=== PATIENT | male | born 1960 | race African-American/Black ===

== ENCOUNTER 2016-02-27 12:05 | Emergency (ER) | payer OTHER ==
[~2016-02-27] VITALS: Wt 59.0 kg
[~2016-02-27 12:05] MED LIST: ALBU8.5H3 INH; CARI350T PO; CYCL-319 PO; GUAI-47 PO; GUAI120S26 PO; LEVO500T72 PO; PRED50TA PO; TAMS-14 PO
[2016-02-27] MEDS ORDERED: ALBUTEROL/IPRATROPIUM (NEB) 3 ML AMP HHN STA (13:12)
--- NOTE | 2016-02-27 13:12 | ERD ---
ER Documentation Chief Complaint Date/Time DATE: 02/27/16 TIME: 13:10 Chief Complaint cough and wheezing for 1 week getting worse. no recent fevers. HPI This patient is a 56-year-old male presenting to the emergency department for asthma exacerbation which has been going on for approximately 1 week. He states he went to [place] and something triggered his asthma and he he has had intermittent wheezing since then. Additionally he reports a nonproductive cough. He also reports some arm tingling but denies any chest pain, shortness of breath, urinary symptoms, fevers, chills or other symptoms at this time. ROS All systems reviewed and are negative except as per history of present illness. Medications Home Meds Active Scripts Albuterol Sulfate* (Ventolin HFA*) 18 Gm Hfa.aer.ad, 2 PUFF INHALATION Q4H, #1 INHALER Prov:LEON LAIRD PA-C 02/27/16 Prednisone* (Prednisone*) 20 Mg Tab, 40 MG PO DAILY for 5 Days, #10 TAB Prov:LEON LAIRD PA-C 02/27/16 Qdsmctrgwfs-M-Uueaahtvei Hb* (Guaifenesin* DM Syrup) 120 Ml Syrup, 10 ML PO Q4H Y for COUGH, #120 ML Prov:GILBERT BESS NP 10/15/15 Prednisone* (Prednisone*) 50 Mg Tablet, 50 MG PO DAILY, #5 TAB Prov:GILBERT BESS NP 10/15/15 Albuterol Sulfate* (Proair HFA*) 8.5 Gm Hfa.aer.ad, 2 PUFF INH Q4H Y for WHEEZING AND SOB, #1 INHALER Prov:GILBERT BESS NP 10/15/15 Tamsulosin Hcl* (Flomax*) 0.4 Mg Cap.er.24h, 0.4 MG PO DAILY, #20 CAP Prov:GILBERT BESS NP 10/15/15 Carisoprodol* (Soma*) 350 Mg Tablet, 350 MG PO TID Y for MUSCLE SPASMS, #15 TAB Prov:ALAYNA ZAPATA NP 05/30/15 Cyclobenzaprine Hcl* (Cyclobenzaprine Hcl*) 10 Mg Tablet, 10 MG PO TID, #15 TAB Prov:ALAYNA ZAPATA I. AQUATICS LIFEGUARD 05/30/15 Guaifenesin-Dextromethorphan* (Mucinex* DM) 600-30 Mg Tabsr, 1 TAB PO Q12, #20 TAB Prov:RADHA GOODWIN DO 11/27/14 Albuterol Sulfate* (Proair HFA*) 8.5 Gm Hfa.aer.ad, 2 PUFF INH Q4, #1 INH 1 Refill Prov:RADHA GOODWIN DO 11/27/14 Levofloxacin* (Levaquin*) 500 Mg Tablet, 500 MG PO DAILY for 7 Days, TAB Prov:RADHA GOODWIN DO 11/27/14 Allergies Allergies: Coded Allergies: No Known Allergy (Unverified , 05/30/15) PMhx/Soc History of Surgery: No Anesthesia Reaction: No Hx Neurological Disorder: No Hx Respiratory Disorders: Yes (ASTHMA ) Hx Cardiac Disorders: No Hx Psychiatric Problems: No Hx Miscellaneous Medical Probl: Yes (PROSTATE PROBLEMS ) Hx Alcohol Use: No Hx Substance Use: No Hx Tobacco Use: Yes (1/2 PACK /DAY ) Smoking Status: Current every day smoker FmHx Noncontributory for chief complaint Physical Exam Vitals Vital Signs Date Time Temp Pulse Resp B/P Pulse Ox O2 Delivery O2 Flow Rate FiO2 02/27/16 13:22 89 22 98 21 02/27/16 12:08 97.6 93 20 134/74 96 Physical Exam INITIAL VITAL SIGNS: Reviewed by me. GENERAL: Alert and interactive. No acute distress. HEAD: Head is normocephalic and atraumatic. EYES: EOMI. No scleral icterus. No conjunctival injection. ENT: Moist mucosa. NECK: Supple. Full range of motion. RESPIRATORY: Shallow inspiratory effort. Inspiratory wheezing to bilateral upper lung shaffer. There are no crackles auscultated. CV: Regular rate and rhythm. Normal S1 S2. No S3 or S4. No murmurs. ABDOMEN: Soft, non-distended, non-tender. No guarding. No rebound. No masses. EXTREMITIES: No deformity. SKIN: Warm and dry. NEUROLOGIC: Alert and oriented x 4. Speech is normal. Moves all extremities equally. No motor or sensory deficits noted. Results 24 hrs Current Medications Medications (Trade) Dose Ordered Sig/Jagjit Route PRN Reason Start Time Stop Time Status Last Admin Dose Admin Albuterol/ Ipratropium (Duoneb) 3 ml ONCE STAT HHN 02/27/16 13:12 02/27/16 13:14 DC 02/27/16 13:28 Dexamethasone (Decadron) 10 mg ONCE ONCE IM 02/27/16 13:30 02/27/16 13:31 DC 02/27/16 13:21 Procedures/MDM 36-year-old male with a history of asthma presenting to the emergency department for 1 week of asthma exacerbation with wheezing and cough. I have ordered a chest x-ray looking for any signs of pneumonia, bronchitis or hyperinflation of the lungs. I have ordered a medication albuterol/ipratropium breathing treatment. I have ordered an IM 10 mg Decadron injection. On reevaluation the patient was feeling improved and his pulse oximetry increased. One view chest x-ray interpretation by radiologist: PROCEDURE: XR Chest. CLINICAL INDICATION: We seen/cough TECHNIQUE: Chest AP portable. COMPARISON: 10/15/2015 FINDINGS: The mediastinal structures are unremarkable. The heart is normal in size and configuration. The pulmonary vascularity is normal. The lung shaffer are unremarkable. No consolidation is identified. The pleural spaces are unremarkable. The axial skeleton is unremarkable. IMPRESSION: No active intrathoracic disease EKG: Interpreted by ED physician Rate/Rhythm: Normal sinus rhythm with a rate of [address] bpm[address] QRS, ST, T-waves: No changes consistent w/ acute ischemia Impression: No evidence of ischemia or arrhythmia Primary diagnosis: Asthma exacerbation Secondary diagnosis: Reactive airway disease with wheezing Discharge: I have discussed the lab results and diagnostic findings with the patient and answered any questions or concerns. The patient was discharged with a prescription for prednisone and albuterol inhaler. The patient was advised to followup with their PMD in 1-2 days and to return to the ED if there are any new or worsening symptoms. The patient understood and agreed with treatment and plan. Departure Diagnosis: Primary Impression: Asthma Additional Impression: RAD (reactive airway disease) with wheezing Condition: Stable Additional Instructions: Follow-up with your primary care physician within 1 week. Return to the emergency department immediately should you have any new or worsening symptoms, uncontrolled fevers, or other unexplained symptoms. Take all medications as directed. LEON LAIRD PA-C Feb 27, 2016 13:12 Take all medications as directed. LEON LAIRD PA-C Feb 27, 2016 13:12
[2016-02-27] MEDS ORDERED: DEXAMETHASONE 10 MG/ML 1 ML INJ IM ONE (13:30)
--- NOTE | 2016-02-27 14:00 | RADRPT ---
PROCEDURE: XR Chest. CLINICAL INDICATION: We seen/cough TECHNIQUE: Chest AP portable. COMPARISON: 10/15/2015 FINDINGS: The mediastinal structures are unremarkable. The heart is normal in size and configuration. The pu lmonary vascularity is normal. The lung shaffer are unremarkable. No consolidation is identified. The pleural spaces are unremarkable. The axial skeleton is unremarkable. IMPRESSION: No active intrathoracic disease. RPTAT: HGDB .Sigifredo Dorsey MD, MD Date Time Electronically viewed and signed by .Sigifredo Dorsey MD, on 02/27/2016 14:00 .B/
[2016-02-27] MEDS ORDERED: PRED20TA PO (14:13)
[2016-02-27] MEDS ORDERED: ALBU18HF INHALATION (14:13)
== END 2016-02-27 14:29 | disposition home or self-care (01) ==
LOC: FTE 12:05
DX: J45.901 Unspecified asthma with (acute) exacerbation (principal); F17.210 Nicotine dependence, cigarettes, uncomplicated
CPT/HCPCS: 71010; 94664; 96372; J1100; Z7502; Z7610; 93005

== ENCOUNTER 2016-03-12 19:25 | Emergency (ER) | payer OTHER ==
[~2016-03-12] VITALS: Ht 175.3 cm; Wt 61.0 kg
[~2016-03-12 19:25] MED LIST changes: +ALBU18HF INHALATION; +PRED20TA PO
[2016-03-12 20:30] VITALS: Ht 175.3 cm; Wt 61.0 kg
--- NOTE | 2016-03-12 21:38 | ERA ---
ER Documentation Chief Complaint Date/Time DATE: 03/12/16 TIME: 21:37 Chief Complaint sob, x 2 days, cough, hx-asthma HPI The patient is a 56-year-old male, presenting to the ER because of shortness of breath, cough, nasal congestion for 2 days. He denies fever, chills, facial pain, neck pain, chest pain, dyspnea, abdominal pain, vomiting, diarrhea. He lost his medication albuterol for the last 2 days. He does smoke half a pack a day, denies drinking Past medical history: Asthma, BPH Past surgical history: None ROS All systems reviewed and are negative except as per history of present illness. Medications Home Meds Active Scripts Salmeterol Xinaf-Fluticasone* (Advair HFA*) 45 Aerosol Inhaler, 2 INH IH BID , #1 INHALER Prov:RAMA SNEED MD 03/13/16 Albuterol Sulfate* (Ventolin HFA*) 18 Gm Hfa.aer.ad, 2 PUFF INHALATION Q4H, #1 INHALER Prov:RAMA SNEED MD 03/13/16 Prednisone* (Prednisone*) 20 Mg Tab, 60 MG PO DAILY for 5 Days, TAB Prov:RAMA SNEED MD 03/13/16 Azithromycin* (Zithromax*) 250 Mg Tablet, 250 MG PO .MIGUEL DIRECTED, #6 TAB TAKE 500 MG (2 TABS) THE FIRST DAY THEN 250 MG (1 TAB) DAYS 2-5 Prov:RAMA SNEED MD 03/13/16 Albuterol Sulfate* (Ventolin HFA*) 18 Gm Hfa.aer.ad, 2 PUFF INHALATION Q4H, #1 INHALER Prov:LEON LAIRD PA-C 02/27/16 Prednisone* (Prednisone*) 20 Mg Tab, 40 MG PO DAILY for 5 Days, #10 TAB Prov:LEON LAIRD PA-C 02/27/16 Mapbzlqdwai-B-Kslfuqznxl Hb* (Guaifenesin* DM Syrup) 120 Ml Syrup, 10 ML PO Q4H Y for COUGH, #120 ML Prov:GILBERT BESS NP 10/15/15 Prednisone* (Prednisone*) 50 Mg Tablet, 50 MG PO DAILY, #5 TAB Prov:GILBERT BESS NP 10/15/15 Albuterol Sulfate* (Proair HFA*) 8.5 Gm Hfa.aer.ad, 2 PUFF INH Q4H Y for WHEEZING AND SOB, #1 INHALER Prov:GILBERT BESS LOOM MECHANIC 10/15/15 Tamsulosin Hcl* (Flomax*) 0.4 Mg Cap.er.24h, 0.4 MG PO DAILY, #20 CAP Prov:GILBERT BESS LOOM MECHANIC 10/15/15 Carisoprodol* (Soma*) 350 Mg Tablet, 350 MG PO TID Y for MUSCLE SPASMS, #15 TAB Prov:ZAPATAALAYNA SHEPPARD I. LOOM MECHANIC 05/30/15 Cyclobenzaprine Hcl* (Cyclobenzaprine Hcl*) 10 Mg Tablet, 10 MG PO TID, #15 TAB Prov:ALAYNA ZAPATA I. LOOM MECHANIC 05/30/15 Guaifenesin-Dextromethorphan* (Mucinex* DM) 600-30 Mg Tabsr, 1 TAB PO Q12, #20 TAB Prov:CHRISTA,RADHA 11/27/14 Albuterol Sulfate* (Proair HFA*) 8.5 Gm Hfa.aer.ad, 2 PUFF INH Q4, #1 INH 1 [facility] 11/27/14 Levofloxacin* (Levaquin*) 500 Mg Tablet, 500 MG PO DAILY for 7 Days, TAB Prov:[facility] 11/27/14 Allergies Allergies: Coded Allergies: No Known Allergy (Unverified , 05/30/15) PMhx/Soc History of Surgery: No Anesthesia Reaction: No Hx Neurological Disorder: No Hx Respiratory Disorders: Yes (ASTHMA ) Hx Cardiac Disorders: No Hx Psychiatric Problems: No Hx Miscellaneous Medical Probl: Yes (PROSTATE PROBLEMS ) Hx Alcohol Use: No Hx Substance Use: No Hx Tobacco Use: Yes (1/2 PACK /DAY ) Physical Exam Vitals Vital Signs Date Time Temp Pulse Resp B/P Pulse Ox O2 Delivery O2 Flow Rate FiO2 03/12/16 22:05 89 24 98 21 03/12/16 20:30 997.9 94 20 156/84 99 Physical Exam Const: No acute distress. Head: Atraumatic. Eyes: Normal Conjunctiva. ENT: Normal External Ears, Nose and Mouth. Neck: Full range of motion. No meningismus. Resp: Bilateral expiratory wheezes Cardio: Regular rate and rhythm, no murmurs. Abd: Soft, non distended, normal bowel sounds, non tender. Skin: No petechiae or rashes. Back: No midline or flank tenderness. Ext: No cyanosis, or edema. Neur: Awake and alert. No focal deficit Psych: Normal Mood and Affect. Results 24 hrs Current Medications Medications (Trade) Dose Ordered Sig/Jagjit Route PRN Reason Start Time Stop Time Status Last Admin Dose Admin Levalbuterol (Xopenex Neb) 3.75 mg ONCE STAT INH 03/12/16 21:55 03/12/16 21:58 DC 03/12/16 22:05 Ipratropium [place] (Atrovent 0.02% (Neb)) 1.5 mg ONCE STAT INH 03/12/16 21:55 03/12/16 21:58 DC 03/12/16 22:05 Methylprednisolone Sodium Succinate 125 mg 125 mg ONCE STAT IV 03/12/16 21:55 03/12/16 21:58 DC 03/12/16 23:15 Sodium Chloride (NS) 1,000 ml @ 1,000 mls/hr Q1H ONCE IV 03/12/16 22:00 03/12/16 22:59 DC 03/12/16 23:15 Procedures/[place] [id number] Radiology Main Line: [phone] DIAGNOSTIC IMAGING REPORT Patient: SONIDO CROSS : 1960 Age: 56 Sex: M MR #: [id number] DOS: 03/12/16 2155 Ordering MD: RAMA SNEED MD Location: [facility] Room/Bed: PROCEDURE: XR Chest. CLINICAL INDICATION: Asthma exacerbation. TECHNIQUE: Portable AP semi erect view of the chest was obtained. COMPARISON: 02/27/2016 FINDINGS: The cardiomediastinal silhouette is within normal limits. The lungs are clear but mildly hyperinflated, the diaphragm slightly flattened. There is no evidence for pleural effusion, pneumothorax or pulmonary vascular congestion. The osseous structures are intact with no evidence for acute abnormality. RPTAT:HJJR IMPRESSION: Stable mild hyperinflation of the lungs without evidence of infiltrate or change compared to 02/27/2016. Physician Scotty Date Time Electronically viewed and signed by Jovanny Tucker Physician on 03/12/2016 22:27 JR/ CC: RAMA SNEED MD MEDICAL MAKING DECISION: The patient is a 56-year-old male, presenting with acute asthmatic bronchitis. He was treated with Xopenex 3.75 mg and Atrovent 1.5 mg continuous nebulizer over one hour, Solu-Medrol 125 mg IV, 1 L normal saline with good response. On reevaluation, he felt well, repeat lung exams were clear. The differential diagnoses considered include but are not limited to asthma, COPD, pneumonia, pulmonary embolus, pleural effusion, congestive heart failure. Departure Diagnosis: Primary Impression: Asthmatic bronchitis with acute exacerbation Condition: Good Comments He was discharged with Zithromax, prednisone, albuterol, Qvar I discussed the findings with the patient. I advised the patient to follow-up with the primary physician in about 1-2 days, sooner if needed and return if any concern. The patient's blood pressure was elevated (>120/80) but appears stable without evidence of hypertension emergency or urgency. The patient was counseled about the risks of hypertension and urged to pursue outpatient monitoring and therapy within a week with their primary care physician. RAMA SNEED MD Mar 12, 2016 21:38
[2016-03-12] MEDS ORDERED: IPRATROPIUM (NEB) 0.5 MG/2.5 ML AMP INH STA (21:55)
[2016-03-12] MEDS ORDERED: LEVALBUTEROL (NEB) 1.25 MG/0.5 ML AMP INH STA (21:55)
[2016-03-12] MEDS ORDERED: METHYLPREDNISOLONE 125 MG INJ IV STA (21:55)
[2016-03-12] MEDS ORDERED: SOD CHLORIDE 0.9% 1,000 ML IV ONE (22:00)
--- NOTE | 2016-03-12 22:27 | RADRPT ---
PROCEDURE: XR Chest. CLINICAL INDICATION: Asthma exacerbation. TECHNIQUE: Portable AP semi erect view of the chest was obtained. COMPARISON: 02/27/2016 FINDINGS: The cardiomediastinal silhouette is within normal limits. The lungs are clear but mildly hyperinfla burak, the diaphragm slightly flattened. There is no evidence for pleural effusion, pneumothorax or p ulmonary vascular congestion. The osseous structures are intact with no evidence for acute abnormal ity. RPTAT:HJJR IMPRESSION: Stable mild hyperinflation of the lungs without evidence of infiltrate or change compared to 017. Physician Scotty Date Time Electronically viewed and signed by Jovanny Tucker Physician on 03/12/2016 22:27 /
[2016-03-13] MEDS ORDERED: AZIT250T94 PO (00:02)
[2016-03-13] MEDS ORDERED: PRED20TA PO (00:02)
[2016-03-13] MEDS ORDERED: ALBU18HF INHALATION (00:03)
[2016-03-13] MEDS ORDERED: FLUT12HF IH (00:05)
[2016-03-13 00:44] VITALS: PULSE 86; RESP 20
== END 2016-03-13 00:46 | disposition home or self-care (01) ==
LOC: FTE 19:25
DX: J45.901 Unspecified asthma with (acute) exacerbation (principal); F17.210 Nicotine dependence, cigarettes, uncomplicated
CPT/HCPCS: 71010; 87400; 94644; 96374; J2930; J7030; Z7502; Z7610

== ENCOUNTER 2016-05-03 20:12 | Emergency (ER) | payer OTHER ==
[~2016-05-03] VITALS: Ht 175.3 cm; Wt 62.0 kg
[~2016-05-03 20:12] MED LIST changes: +AZIT250T94 PO; +FLUT12HF IH
[2016-05-03 20:36] VITALS: Ht 175.3 cm; Wt 62.0 kg
--- NOTE | 2016-05-03 20:44 | EN ---
Date/Time of Note Date/Time of Note DATE: 05/03/16 TIME: 20:42 ER Progress Note This 56-year-old male presents here in emergency department for complaints of an avulsion laceration in the scalp after hitting with a wood tonight, did not lose consciousness afterwards. Patient also has been dry cough, does not cough up any phlegm or blood. Patient was evaluated initially here in the rapid medical examination, patient needs tetanus vaccination, needs further evaluation and treatment in ER 2, pending bed assignment at this time. Patient is stable at this time. No symptoms of neurologic emergencies at this time. Neurologic exam is normal at this time. Lungs are clear. Stable at this time, waiting for a bed assignment GILBERT BESS NP May 03, 2016 20:43
[2016-05-03] MEDS ORDERED: ALBUTEROL 0.083% (NEB) 2.5 MG/3 ML AMP HHN STA (21:06)
[2016-05-03] MEDS ORDERED: IBUP-1542 PO (21:07)
[2016-05-03] MEDS ORDERED: DIPHTH/TET/ACEL PERTUSS (ADULT) 0.5 ML VIAL IM* ONE (21:30)
[2016-05-03] MEDS ORDERED: IBUPROFEN 800 MG TAB PO ONE (21:30)
[2016-05-03] MEDS ORDERED: IPRATROPIUM (NEB) 0.5 MG/2.5 ML AMP HHN ONE (21:30)
[2016-05-03 22:05] VITALS: BP 132/90; PULSE 85; RESP 18
--- NOTE | 2016-05-03 23:59 | ERD ---
ER Documentation Chief Complaint Date/Time DATE: 05/03/16 TIME: 23:55 Chief Complaint hit headagainst a piece of wood rtoday, no ko, cough x 2 days HPI Patient is a 56-year-old male with asthma who presents after he cut his head. He said that he was working and cut his head on a wooden horse. The patient had a chunk that was taken out of the top of his scalp. This happened at 12 noon. He has had no treatment as of yet. He denies loss of consciousness. He says that he is wheezing and he wants a breathing treatment. Upon review of old medical records this is the patient's seventh visit to the ER since 2014. ROS All systems reviewed and are negative except as per history of present illness. Medications Home Meds Active Scripts Ibuprofen* (Motrin*) 600 Mg Tab, 600 MG PO Q6H Y for PAIN AND OR ELEVATED TEMP, #30 TAB Prov:ADRIANA TURNER MD 05/03/16 Salmeterol Xinaf-Fluticasone* (Advair HFA*) 45/212 Aerosol Inhaler, 2 INH IH BID , #1 INHALER Prov:RAMA SNEED MD 03/13/16 Albuterol Sulfate* (Ventolin HFA*) 18 Gm Hfa.aer.ad, 2 PUFF INHALATION Q4H, #1 INHALER Prov:RAMA SNEED MD 03/13/16 Prednisone* (Prednisone*) 20 Mg Tab, 60 MG PO DAILY for 5 Days, TAB Prov:RAMA SNEED MD 03/13/16 Azithromycin* (Zithromax*) 250 Mg Tablet, 250 MG PO .AmbreenPACK DIRECTED, #6 TAB TAKE 500 MG (2 TABS) THE FIRST DAY THEN 250 MG (1 TAB) DAYS 2-5 Prov:RAMA SNEED MD 03/13/16 Albuterol Sulfate* (Ventolin HFA*) 18 Gm Hfa.aer.ad, 2 PUFF INHALATION Q4H, #1 INHALER Prov:LEON LAIRD PA-C 02/27/16 Prednisone* (Prednisone*) 20 Mg Tab, 40 MG PO DAILY for 5 Days, #10 TAB Prov:LEON LAIRD PA-C 02/27/16 Lyvtakmfvix-T-Hommgbfjyl Hb* (Guaifenesin* DM Syrup) 120 Ml Syrup, 10 ML PO Q4H Y for COUGH, #120 ML Prov:GILBERT BESS HEARING THERAPIST 10/15/15 Prednisone* (Prednisone*) 50 Mg Tablet, 50 MG PO DAILY, #5 TAB Prov:GILBERT BESS HEARING THERAPIST 10/15/15 Albuterol Sulfate* (Proair HFA*) 8.5 Gm Hfa.aer.ad, 2 PUFF INH Q4H Y for WHEEZING AND SOB, #1 INHALER Prov:GILBERT BESS HEARING THERAPIST 10/15/15 Tamsulosin Hcl* (Flomax*) 0.4 Mg Cap.er.24h, 0.4 MG PO DAILY, #20 CAP Prov:GILBERT BESS HEARING THERAPIST 10/15/15 Carisoprodol* (Soma*) 350 Mg Tablet, 350 MG PO TID Y for MUSCLE SPASMS, #15 TAB Prov:ALAYNA ZAPATA I. HEARING THERAPIST 05/30/15 Cyclobenzaprine Hcl* (Cyclobenzaprine Hcl*) 10 Mg Tablet, 10 MG PO TID, #15 TAB Prov:ALAYNA ZAPATA I. HEARING THERAPIST 05/30/15 Guaifenesin-Dextromethorphan* (Mucinex* DM) 600-30 Mg Tabsr, 1 TAB PO Q12, #20 TAB Prov:RADHA GOODWIN 11/27/14 Albuterol Sulfate* (Proair HFA*) 8.5 Gm Hfa.aer.ad, 2 PUFF INH Q4, #1 INH 1 [facility] 11/27/14 Levofloxacin* (Levaquin*) 500 Mg Tablet, 500 MG PO DAILY for 7 Days, TAB [facility] 11/27/14 Allergies Allergies: Coded Allergies: No Known Allergy (Unverified , 05/30/15) PMhx/Soc Medical and Surgical Hx: pt denies Surgical Hx History of Surgery: No Anesthesia Reaction: No Hx Neurological Disorder: No Hx Respiratory Disorders: Yes (ASTHMA ) Hx Cardiac Disorders: No Hx Psychiatric Problems: No Hx Miscellaneous Medical Probl: Yes (PROSTATE PROBLEMS ) Hx Alcohol Use: Yes Hx Substance Use: No Hx Tobacco Use: Yes (1/2 PACK /DAY ) Smoking Status: Current every day smoker FmHx Family History: No diabetes Physical Exam Vitals Vital Signs Date Time Temp Pulse Resp B/P Pulse Ox O2 Delivery O2 Flow Rate FiO2 05/03/16 22:05 85 18 132/90 96 Room Air 05/03/16 21:33 98 22 100 21 05/03/16 20:36 88 20 133/85 98 Physical Exam Const: No acute Head: 2 x 2 centimeter avulsion to the top of the scalp without bleeding Eyes: Normal Conjunctiva ENT: Normal External Ears, Nose and Mouth. Neck: Full range of motion..~ No meningismus. Resp: Clear to auscultation bilaterally Cardio: Regular rate and rhythm, no murmurs Abd: Soft, non tender, non distended. Normal bowel sounds Skin: 2 x 2 centimeters scalp avulsion Back: No midline or flank tenderness Ext: No cyanosis, or edema Neur: Awake and alert Psych: Normal Mood and Affect Results 24 hrs Current Medications Medications (Trade) Dose Ordered Sig/Jagjit Route PRN Reason Start Time Stop Time Status Last Admin Dose Admin Diphtheria/ Tetanus/Acell Pertussis (Adacel) 0.5 ml ONCE ONCE IM* 05/03/16 21:30 05/03/16 21:31 DC 05/03/16 21:18 Ibuprofen (Motrin) 800 mg ONCE ONCE PO 05/03/16 21:30 05/03/16 21:31 DC 05/03/16 21:17 Albuterol (Proventil 0.083% (Neb)) 5 mg ONCE STAT HHN 05/03/16 21:06 05/03/16 21:07 DC 05/03/16 21:33 Ipratropium [place] (Atrovent 0.02% (Neb)) 0.5 mg ONCE ONCE HHN 05/03/16 21:30 05/03/16 21:31 DC 05/03/16 21:32 Procedures/MDM Smoking Cessation Therapy: Pt. was lectured for greater than 3 minutes on the health risks of continued smoking and the benefits of cessation. Patient is a 56-year-old male who presents with a scalp avulsion. The patient does not require CT scan at this time. The patient was given albuterol and Atrovent breathing treatment and feels better. The patient had wound cleansing and will be given a sterile dressing. I do not believe he needs further workup or admission to the hospital this time. I believe outpatient management is appropriate. He was given a tetanus shot as well because he does not know when his last tetanus shot was. He will need wound check in 2 days by the primary doctor. Departure Diagnosis: Primary Impression: Wheezing Additional Impression: Laceration Condition: Fair Patient Instructions: Asthma, Laceration, Scalp Referrals: Your doctor Additional Instructions: Call your primary care doctor TOMORROW for an appointment during the next 1-2 days.See the doctor sooner or return here if your condition worsens before your appointment time. ADRIANA TURNER MD May 03, 2016 23:59
== END 2016-05-03 22:18 | disposition home or self-care (01) ==
LOC: FTE 20:12
DX: R06.2 Wheezing (principal); S01.01XA Laceration without foreign body of scalp, initial encounter; F17.210 Nicotine dependence, cigarettes, uncomplicated; W22.8XXA Striking against or struck by other objects, initial encounter; Y92.9 Unspecified place or not applicable; Z23 Encounter for immunization
CPT/HCPCS: 90471; 90715; 94664; Z7502; Z7610

== ENCOUNTER 2017-03-30 04:16 | Emergency (ER) | END 2017-03-30 06:22 | disposition home or self-care (01) ==

== ENCOUNTER 2017-05-11 04:53 | Emergency (ER) | END 2017-05-11 07:42 | disposition home or self-care (01) ==

== ENCOUNTER 2018-11-04 08:35 | Emergency (ER) | payer MEDICAID ==
[~2018-11-04] VITALS: Ht 170.2 cm; Wt 59.5 kg
[~2018-11-04 08:35] MED LIST changes: -ALBU8.5H3 INH; +ALBU8.5H8 INH; +AZIT250T PO; -AZIT250T94 PO; +CODE5LIQ2 PO; -CYCL-319 PO; +CYCL10TA7 PO; +GUAI120S25 PO; -GUAI120S26 PO; +IBUP-1542 PO; +LEVO500T48 PO; -LEVO500T72 PO; +MONT4GRA2 PO; +SULF1TAB31 PO
[2018-11-04 08:40] VITALS: BP 147/83; PULSE 71; RESP 18; Ht 170.2 cm; Wt 59.5 kg
[2018-11-04] MEDS ORDERED: IPRATROPIUM (NEB) 0.5 MG/2.5 ML AMP NEB STA (09:57)
[2018-11-04] MEDS ORDERED: ALBUTEROL 0.083% (NEB) 2.5 MG/3 ML AMP NEB STA (09:57)
== END 2018-11-04 10:31 | disposition home or self-care (01) ==
LOC: FTE 08:35
DX: N39.0 Urinary tract infection, site not specified (principal); J44.9 Chronic obstructive pulmonary disease, unspecified; F17.210 Nicotine dependence, cigarettes, uncomplicated
CPT/HCPCS: 81003; 87086; 94664; Z7502; Z7610